=== PATIENT | female | born 1995 | race Two or more races ===

== ENCOUNTER 2019-10-12 14:00 | Inpatient (IN) | payer MEDICAID ==
[2019-10-12] VITALS (10 sets, daily range): BP systolic 91–107; BP diastolic 56–68
[~2019-10-12] VITALS: Ht 154.9 cm; Wt 74.8 kg
[2019-10-12] MEDS ORDERED: LACTATED RINGER'S 1,000 ML IV SCH (15:34)
[2019-10-12] MEDS ORDERED: LACT. RINGERS/OXYTOCIN 20UNITS 1,000 ML IV SCH ×2 (15:34→18:37)
[2019-10-12] MEDS ORDERED: METHYLERGONOVINE MALEATE 0.2 MG/ML AMP IM PRN (15:45)
[2019-10-12] MEDS ORDERED: WITCH HAZEL-GLYCERIN PAD TOP PRN (15:45)
[2019-10-12] MEDS ORDERED: PHISODERM TOP SOLN 240ML BTL TOP PRN (15:45)
[2019-10-12] MEDS ORDERED: LIDOCAINE 2%HCL (LOCAL ANESTH.) INJ 20ML MDV ID ONE (15:45)
[2019-10-12] MEDS ORDERED: DERMOPLAST 60ML BOTTLE TOP PRN (15:45)
[2019-10-12 16:30] LABS: Basophils # (auto) 0 10 ^3/uL (0-0.2); Basophils % (auto) 0.7 % (0.0-2.0); Eosinophils # (auto) 0 10 ^3/uL (0-0.8); Eosinophils % (auto) 0.9 % (0.0-7.0); Hematocrit 37.4 % (36.0-46.0); Hemoglobin 12.8 g/dL (12.2-16.2); Lymphocytes # (auto) 1.1 10 ^3/uL (0.4-5.4); Lymphocytes % (auto) 23.1 % (10.0-50.0); Mean Corpuscular Hemoglobin 31.6 pg (28.0-32.0); Mean Corpuscular Hgb Conc. 34.2 g/dL (32.0-36.0); Mean Corpuscular Volume 92.4 fL (80.0-100.0); Monocytes # (auto) 0.4 10 ^3/uL (0-1.3); Monocytes % (auto) 8.2 % (0.0-12.0); Neutrophils # (auto) 3.2 10 ^3/uL (1.6-8.6); Neutrophils % (auto) 67.1 % (37.0-80.0); Nucleated Red Blood Cells % 0.5 %; Platelet Count (auto) 168 10^3/uL (140-450); Red Blood Cells 4.04 10^6/uL (4.0-5.20); Red Cell Distribution Width 14.9 % (11.8-14.3); White Blood Cell 4.8 10^3/uL (4.4-10.8)
[2019-10-12 16:35] LABS: Urine Bacteria FEW /hpf (None Seen); Urine Blood Negative /uL (Negative); Urine Mucus FEW (None Seen); Urine Specific Gravity 1.024 (1.001-1.035); Urine WBC 26 /hpf (0 - 5)
[2019-10-12 16:43] LABS: INR 0.91 (0.9-1.15); Partial Thromboplastin Time 25.9 sec (23.64-32.05)
[2019-10-12 16:51] LABS: Albumin 2.6 g/dL (3.4-5.0); Calcium 8.2 mg/dL (8.5-10.1); Potassium 3.6 mmol/L (3.5-5.1)
[2019-10-12 16:57] LABS: Alcohol, Urine < 3.0 mg/dL (0-10); Amphetamine Screen, Urine NEGATIVE (NEGATIVE); Barbiturate Scree,Urine NEGATIVE (NEGATIVE); Benzodiazephine Screen, Urine NEGATIVE (NEGATIVE); Cannabinoid Screen, Urine NEGATIVE (NEGATIVE); Cocaine Screen, Urine NEGATIVE (NEGATIVE); Opiate Scree,Urine NEGATIVE (NEGATIVE); Phencyclidine Screen, Urine NEGATIVE (NEGATIVE)
[2019-10-12 16:58] LABS: BUN/Creatinine Ratio 11.6; Bilirubin, Total 0.4 mg/dL (0.2-1.0); Total Protein 6.5 g/dL (6.4-8.2); Uric Acid 7.3 mg/dL (2.6-6.0)
[2019-10-12] MEDS ORDERED: TETRACAINE 1% INJ 2 ML VIAL IJ ONE (17:45)
[2019-10-12] MEDS ORDERED: MORPHINE SULF(PF) 0.5MG/ML 10ML VIAL ONE (18:20)
[2019-10-12] MEDS ORDERED: fentaNYL CITRATE 100 MCG/2 ML VL ONE (18:20)
[2019-10-12] MEDS ORDERED: MIDAZOLAM HCL 1MG/1ML-2 ML VIAL ONE (18:21)
[2019-10-12] MEDS ORDERED: ceFAZolin 1GM/50ML 50 ML IV SCH (18:45)
[2019-10-12] MEDS ORDERED: MORPHINE SULFATE 4 MG/ML SYR/VIAL IV PRN (18:45)
[2019-10-12] MEDS ORDERED: ONDANSETRON HCL 4 MG/2 ML VIAL IV PRN ×3 (18:45→19:30)
[2019-10-12] MEDS ORDERED: ceFAZolin 1GM VL ONE (18:52)
[2019-10-12] MEDS ORDERED: oxyTOCIN 10 UNIT/ML 10ML VIAL ONE (18:52)
[2019-10-12] MEDS ORDERED: HYDROmorphone HCL 2 MG/ML VL IV PRN (19:30)
[2019-10-12] MEDS ORDERED: NALBUPHINE HCL 10 MG/1ml INJECTION SUBCUT ONE (19:30)
[2019-10-12] MEDS ORDERED: diphenhdrAMINE HCL 50 MG/1 ML VL IV PRN (19:30)
[2019-10-12] MEDS ORDERED: DexAMETHasone SOD PHOS 10MG/1ML VIAL INJ IV PRN (19:30)
[2019-10-12] MEDS ORDERED: NALOXONE HCL 0.4 MG/ML VIAL IV PRN (19:30)
[2019-10-12] MEDS ORDERED: LABETALOL HCL 5 MG/ML 4ML SYRINGE IV PRN (19:30)
[2019-10-12] MEDS ORDERED: ePHEDrine SULFATE 50 MG/ML AMP IV PRN (19:30)
[2019-10-12] MEDS ORDERED: MIDAZOLAM HCL 1MG/1ML-2 ML VIAL IV PRN (19:30)
--- NOTE | 2019-10-12 20:00 | NUR ---
Post Op for LDRP: Received patient from PACU via bed to room 8B. Patient A/A/Ox4, abdominal binder and bilateral SCD's are in place, IV fluids placed on pump and infusing per order, incisional site dressing clean/dry/intact and Scruggs Catheter to gravity draining clear yellow urine. Incentive Spirometer at bedside and instruction on proper use with return demonstration done by patient.
[2019-10-12 21:42] LABS: Basophils # (auto) 0 10 ^3/uL (0-0.2); Basophils % (auto) 0.5 % (0.0-2.0); Eosinophils # (auto) 0.1 10 ^3/uL (0-0.8); Eosinophils % (auto) 0.9 % (0.0-7.0); Hematocrit 34.8 % (36.0-46.0); Hemoglobin 11.7 g/dL (12.2-16.2); Lymphocytes # (auto) 1.3 10 ^3/uL (0.4-5.4); Lymphocytes % (auto) 23.9 % (10.0-50.0); Mean Corpuscular Hemoglobin 31.2 pg (28.0-32.0); Mean Corpuscular Hgb Conc. 33.6 g/dL (32.0-36.0); Mean Corpuscular Volume 92.9 fL (80.0-100.0); Monocytes # (auto) 0.2 10 ^3/uL (0-1.3); Monocytes % (auto) 4.1 % (0.0-12.0); Neutrophils % (auto) 70.6 % (37.0-80.0); Nucleated Red Blood Cells % 0.2 %; Platelet Count (auto) 168 10^3/uL (140-450); Red Blood Cells 3.75 10^6/uL (4.0-5.20); Red Cell Distribution Width 14.9 % (11.8-14.3); White Blood Cell 5.6 10^3/uL (4.4-10.8)
[2019-10-12] MEDS ORDERED: ACETAMINOPHEN IV 1000 MG/100ML (10MG/ML) IV PRN (22:45)
[2019-10-13] VITALS (9 sets, daily range): BP systolic 93–128; BP diastolic 58–84
[2019-10-13] MEDS ORDERED: ACETAMINOPHEN IV 1000 MG/100ML (10MG/ML) IV PRN (00:15)
[2019-10-13] MEDS: ceFAZolin 1GM/50ML 50 ML IV SCH ×3 (02:54→18:55)
--- NOTE | 2019-10-13 03:29 | NUR ---
[facility] CARE PERFORMED. PATIENT TOLERATED WELL
[2019-10-13 06:31] LABS: Basophils # (auto) 0 10 ^3/uL (0-0.2); Basophils % (auto) 0.3 % (0.0-2.0); Eosinophils # (auto) 0 10 ^3/uL (0-0.8); Eosinophils % (auto) 0.6 % (0.0-7.0); Hematocrit 29.9 % (36.0-46.0); Hemoglobin 10.1 g/dL (12.2-16.2); Lymphocytes # (auto) 1.2 10 ^3/uL (0.4-5.4); Lymphocytes % (auto) 17.9 % (10.0-50.0); Mean Corpuscular Hemoglobin 31.1 pg (28.0-32.0); Mean Corpuscular Hgb Conc. 33.7 g/dL (32.0-36.0); Mean Corpuscular Volume 92.3 fL (80.0-100.0); Monocytes # (auto) 0.3 10 ^3/uL (0-1.3); Monocytes % (auto) 4.8 % (0.0-12.0); Neutrophils % (auto) 76.4 % (37.0-80.0); Nucleated Red Blood Cells % 0.2 %; Platelet Count (auto) 148 10^3/uL (140-450); Red Blood Cells 3.24 10^6/uL (4.0-5.20); Red Cell Distribution Width 14.8 % (11.8-14.3); White Blood Cell 6.6 10^3/uL (4.4-10.8)
[2019-10-13] MEDS ORDERED: BISACODYL 10 MG RECT SUPP PR PRN (08:30)
[2019-10-13] MEDS ORDERED: HYDROcodone-ACET 5/325MG TAB PO PRN (08:30)
[2019-10-13] MEDS: HYDROcodone-ACET 5/325MG TAB PO PRN ×2 (08:42→16:01)
--- NOTE | 2019-10-13 08:45 | NUR ---
golden catheter discontinue per orders, pt tolerated well
[2019-10-13] MEDS: IBUPROFEN 800 MG TAB PO PRN ×2 (11:26→22:38)
[2019-10-13] MEDS: DOCUSATE SOD 100 MG CAP PO SCH ×2 (11:28→22:37)
[2019-10-13] MEDS: DOCUSATE CALCIUM 240 MG CAP PO SCH (11:29)
[2019-10-13] MEDS: SIMETHICONE 80 MG CHEWABLE TABLET PO SCH ×3 (13:25→22:38)
--- NOTE | 2019-10-13 13:30 | NUR ---
Ambulation: Patient OOB with standby assistance by RN. Patient ambulated to bathroom with steady gait. Patient able to void without difficulty. Pericare teaching provided with returned demonstration by patient. Clean gown provided and bed linen changed. Patient ambulated back to bed with steady gait and no distress noted.
[2019-10-14 03:00] VITALS: BP 122/81
[2019-10-14] MEDS: HYDROcodone-ACET 5/325MG TAB PO PRN (06:02)
[2019-10-14] MEDS: SIMETHICONE 80 MG CHEWABLE TABLET PO SCH ×4 (06:02→22:04)
[2019-10-14 07:00] VITALS: BP 118/75
[2019-10-14] MEDS: DOCUSATE CALCIUM 240 MG CAP PO SCH (10:36)
[2019-10-14 11:30] VITALS: BP 118/84
[2019-10-14] MEDS: IBUPROFEN 800 MG TAB PO PRN ×2 (11:44→20:48)
[2019-10-14 15:21] VITALS: BP 117/77
[2019-10-14] MEDS ORDERED: PREN-96 PO (15:38)
[2019-10-14] MEDS ORDERED: FERR-7 PO (15:38)
[2019-10-14 19:00] VITALS: BP 123/78
[2019-10-14 23:00] VITALS: BP 113/71
[2019-10-15 03:00] VITALS: BP 122/80
[2019-10-15 07:20] VITALS: BP 128/89
[2019-10-15] MEDS: IBUPROFEN 800 MG TAB PO PRN (08:11)
--- NOTE | 2019-10-15 09:20 | NUR ---
IV removal IV DC'd with sterile technique, catheter fully intact. Pressure dressing applied to site. Patient tolerated procedure well. Discharged with aftercare instructions per MD. NOTE:
--- NOTE | 2019-10-15 09:45 | NUR ---
Discharge: Discharge instructions given as ordered. Pt encouraged to follow up with [facility] as instructed. All questions and concerns addressed. Patient verbalized understanding. Medication reconciliation completed and copy given to patient. All required/requested vaccines given and copies of vaccinations given to patient. Patient encouraged to prepare to depart unit.
--- NOTE | 2019-10-15 09:55 | NUR ---
Discharge: Patient taken to vehicle via wheelchair with all personal belongings, accompanied by staff and family member. No distress noted at time of departure, no adverse changes in status since initial assessment.
[2019-10-15 11:08] VITALS: BP 128/89
== END 2019-10-15 09:55 | disposition home or self-care (01) | DRG 540 ==
LOC: LDRP 14:00 → OBSVTOIN 15:35 → LDRP 15:36
PROVIDERS: ADMIT Obstetrics & Gynecology; ATTEND Obstetrics & Gynecology
PROC: 10D00Z1 Extraction of Products of Conception, Low, Open Approach (ICD-10-PCS; principal; 2019-10-12 18:36)
DX: O36.63X0 Maternal care for excessive fetal growth, third trimester, not applicable or unspecified (principal); O41.03X0 Oligohydramnios, third trimester, not applicable or unspecified; O64.0XX0 Obstructed labor due to incomplete rotation of fetal head, not applicable or unspecified; O48.0 Post-term pregnancy; Z37.0 Single live birth; Z3A.40 40 weeks gestation of pregnancy
CPT/HCPCS: 36415; 51702; 59025; 76818; 80053; 80307; 81001; 81002; 84112; 84550; 85025; 85610; 85730; 86850; 86900; 86901; 94762; 96361; 96366; G0378; J0131; J0690; J2250; J2590